=== PATIENT | female | born 1985 | race Caucasian/White ===

== ENCOUNTER 2019-08-08 10:09 | Emergency (ER) | payer BC ==
[2019-08-08] MEDS ORDERED: hydrOXYzine HCL TAB* 50 MG PO ONE (10:41)
--- NOTE | 2019-08-08 10:42 | ED ---
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 Symptoms aggravated by nothing. Symptoms alleviated by nothing. Patient reports she randomly got warm, fuzzy, dizzy, going slide to side/could not walk straight. Pt reports she was walking around during onset. Pt reports she is currently not experiencing odd vision but still feels slightly dizzy (room is moving) and disoriented currently. Pt denies any ringing, roaring, buzzing in her ear but ears are slightly warm. Denies cold, cough, viral infection, and any further medical problems. Mhx Mitrovalve prolapse. Drinks alcohol occasionally but does not smoke or use substances. Last menstrual period was last week. - History Of Current Complaint Chief Complaint: EDSyncope Stated Complaint: NEAR SYNCOPE Time Seen by Provider: 08/08/19 10:27 Hx Obtained From: Patient Timing: Constant Character: Dizzy Aggravating Factor(s): Nothing Alleviating Factor(s): Nothing Associated Signs And Symptoms: Positive: Unsteady Gait, Visual Changes, Other: - fuzzy, warm, dizzy, disorientation, warm ears; denies ringing in ear, cold, cough, viral infection - Allergies/Home Medications Allergies/Adverse Reactions: Allergies Allergy/AdvReac Type Severity Reaction Status Date / Time No Known Allergies Allergy Verified 08/08/19 10:18 PMH/Surg Hx/FS Hx/Imm Hx Endocrine/Hematology History: Denies: Hx Diabetes - Surgical History Surgery Procedure, Year, and Place: wisdom teeth removal Infectious Disease History: No Infectious Disease History: Denies: Traveled Outside the [place] in Last 30 Days - Family History Known Family History: Positive: Hypertension, Diabetes, Other - hypercholesterolemia - Social History Alcohol Use: Occasionally Hx Substance Use: No Substance Use Type: Reports: None Hx Tobacco Use: No Smoking Status (MU): Never Smoked Tobacco Review of Systems Positive: Other - warm, fuzzy; denies cold, viral infetion Positive: Other - visual changes Positive: Other - denies ear ringing, reports eye warmth Negative: Cough Neurological: Other - dizziness, unsteady gait All Other Systems Reviewed And Are Negative: Yes Physical Exam - Summary Physical Exam Summary: Appearance: The patient is well-nourished in no acute distress and in no acute pain. Skin: The skin is warm and dry, and skin color reflects adequate perfusion. HEENT: The head is normocephalic and atraumatic. horizontal nystagmus, fast component to the left. The conjunctivae are clear and without drainage. Nares are patent and without drainage. Mouth reveals moist mucous membranes, and the throat is without erythema and exudate. The external ears are intact. The ear canals are patent and without drainage. The tympanic membranes are intact. Neck: The neck is supple with full range of motion and non-tender. There are no carotid bruits. There is no neck vein distension. Respiratory: Chest is non-tender. Lungs are clear to auscultation and breath sounds are symmetrical and equal. Cardiovascular: Heart is regular rate and rhythm. There is no murmur or rub auscultated. There is no peripheral edema and pulses are symmetrical and equal. Abdomen: The abdomen is soft and non-tender. There are normal bowel sounds heard in all four quadrants and there is no organomegaly palpated. Musculoskeletal: There is no back tenderness noted. Extremities are non-tender with full range of motion. There is good capillary refill. There is no peripheral edema or calf tenderness elicited. Neurological: Patient is alert and oriented to person, place and time. The patient has symmetrical motor strength in all four extremities. Cranial nerves are grossly intact. Deep tendon reflexes are symmetrical and equal in all four extremities. Psychiatric: The patient has an appropriate affect and does not exhibit any anxiety or depression. Triage Information Reviewed: Yes Vital Signs On Initial Exam: Initial Vitals Temp Pulse Resp BP Pulse Ox 98 F 74 16 137/89 98 08/08/19 10:16 08/08/19 10:16 08/08/19 10:16 08/08/19 10:16 08/08/19 10:16 Vital Signs Reviewed: Yes Procedures - Sedation Patient Received Moderate/Deep Sedation with Procedure: No Diagnostics - Vital Signs Vital Signs Temp Pulse Resp BP Pulse Ox 08/08/19 10:16 98 F 74 16 137/89 98 - Laboratory Result Diagrams: 08/08/19 11:14 08/08/19 11:14 Lab Statement: Any lab studies that have been ordered have been reviewed, and results considered in the medical decision making process. Dizzy Course/Dx - Course Course Of Treatment: Ms. Mikulak was in her normal good state of health this morning. She was walking at work and suddenly felt like the room was moving and she was off balance a little bit. She felt a little nauseated but did not vomit. She describes no other symptoms. She has no headache or neck pain. She was evaluated here with a normal neurological exam. She did have some horizontal nystagmus which worsened to the left. She improved a lot with hydroxyzine and her labs are normal. I don't think a head CT is indicated in this young woman. I think she has a peripheral vertigo and I will recommend symptomatic treatment and follow-up if not completely improved in 2-3 days.. - Diagnoses Provider Diagnoses: Peripheral vertigo Discharge ED - Sign-Out/Discharge Documenting (check all that apply): Patient Departure - discharge - Discharge Plan Condition: Stable Disposition: HOME Prescriptions: Meclizine TAB* [Antivert 12.5 TAB*] 25 mg PO TID PRN #20 tab PRN Reason: Dizziness Meclizine TAB* [Antivert 12.5 TAB*] 25 mg PO TID PRN #20 tab PRN Reason: Dizziness Meclizine TAB* [Antivert 12.5 TAB*] 25 mg PO TID PRN #20 tab PRN Reason: Dizziness Patient Education Materials: Vertigo (ED) Forms: *Work Release Referrals: [facility] [Outside] - 3 Days - Billing Disposition and Condition Condition: STABLE Disposition: Home - Attestation Statements Document Initiated by Scribe: Yes Documenting Scribe: Carley Lau Provider For Whom Kerwin is Documenting (Include Credential): Dr. Tae Gannon MD Scribe Attestation: ICarley, scribed for Dr. Tae Gannon MD on 08/08/19 at 1308. Scribe Documentation Reviewed: Yes Provider Attestation: The documentation as recorded by the Carley singer accurately reflects the service I personally performed and the decisions made by me, Dr. Tae Gannon MD Status of Scribe Document: Viewed
[2019-08-08 11:28] LABS: ABS Lymphocytes 1.2 10^3/ul (1.0-4.8); ABS Monocytes 0.3 10^3/ul (0-0.8); ABS Neutrophils 2.9 10^3/ul (1.5-7.7); Eosinophil % 1.1 %; Hematocrit 39 % (35-47); Hemoglobin 13.1 g/dL (12.0-16.0); Lymphocyte % 27.4 %; Mean Corpuscular HGB Conc 34 g/dL (31-36); Mean Corpuscular Hemoglobin 30 pg (27-31); Mean Corpuscular Volume 89 fL (80-97); Mean Platelet Volume 7.9 fL (7.4-10.4); Platelet Count 228 10^3/uL (150-450); Red Blood Count 4.31 10^6 /uL (3.70-4.87); Red Cell Distribution Width 12 % (10-15); White Blood Count 4.5 10^3/uL (3.5-10.8)
[2019-08-08 11:40] LABS: Albumin 4.5 g/dL (3.2-5.2); Albumin/Globulin Ratio 1.7 (1-3); Calcium 9.3 mg/dL (8.6-10.3); EGFR African American 97.1 (>60); EGFR Non-African American 80.3 (>60); Globulin 2.6 g/dL (2-4); Magnesium 2.1 mg/dL (1.9-2.7); Potassium 3.7 mmol/L (3.5-5.0); Total Bilirubin 0.5 mg/dL (0.2-1.0); Total Protein 7.1 g/dL (6.4-8.9)
[2019-08-08 12:08] LABS: TSH (Thyroid Stimulating Horm) 1.23 mcIU/mL (0.34-5.60)
[2019-08-08 12:39] VITALS: BP 126/88
== END 2019-08-08 12:46 | disposition home or self-care (01) ==
LOC: ED 10:09
DX: H81.399 Other peripheral vertigo, unspecified ear (principal)
CPT/HCPCS: 36415; 80053; 83605; 83735; 84443; 84484; 85025; 93005; 99283; A9270-GY